=== PATIENT | male | born 1960 | race Hispanic/Latino ===

== ENCOUNTER 2017-11-11 12:35 | Outpatient (CLI) | payer OTHER ==
[2017-11-11 13:18] LABS: Blood Urea Nitrogen 20 mg/dL (9-20)
--- NOTE | 2017-11-12 07:37 | Cat Scan Report ---
CT CHEST WITH CONTRAST: HISTORY: Lymphoma, sarcoidosis. COMPARISON: none. TECHNIQUE: Helical CT in 1.25mm intervals following IV contrast. Sagittal and coronal reformatted images. FINDINGS: Thyroid gland: Normal. Tracheobronchial tree: Normal. Esophagus: Normal. Heart: Normal. Pacemaker device is in position. Pericardium: Normal. Mediastinum: No evidence for mass or adenopathy. Lung Smith: There is mild interstitial prominence and mild volume loss in the right upper lobe extending to the right hilum. These findings could be related to sarcoidosis or represent chronic scarring or radiation changes. The remainder of the lungs are unremarkable. No chronic underlying lung disease is appreciated otherwise. No mass or nodule. Pleural Spaces: Normal. Musculoskeletal: Intact. Mild thoracic spondylosis is noted. No suspicious bony lesion is appreciated. IMPRESSION: There is mild interstitial prominence in the right upper lobe as outlined above. Although this could be related to sarcoidosis, chronic scarring or radiation changes are thought more likely. Please correlate with the patient's history. No thoracic adenopathy is detected.
== END 2017-11-11 12:36 | disposition home or self-care (01) ==
LOC: CT 12:35
PROVIDERS: ATTEND Specialist
DX: C85.90 Non-Hodgkin lymphoma, unspecified, unspecified site (principal); D86.0 Sarcoidosis of lung; I10 Essential (primary) hypertension; J44.9 Chronic obstructive pulmonary disease, unspecified; F17.210 Nicotine dependence, cigarettes, uncomplicated
CPT/HCPCS: 36415; 71260; 82565; 84520; Q9967